=== PATIENT | female | born 1950 | race Caucasian/White ===

== ENCOUNTER → 2018-05-26 | Outpatient (CLI) | payer BC ==
[~2018-05-26] MED LIST: OMNIPAQUE 350 MG/ML, 100ML BOTTLE ONE
== END | disposition home or self-care (01) ==
LOC: CFH 10:09
PROVIDERS: ATTEND Internal Medicine Hematology & Oncology
DX: Z45.2 Encounter for adjustment and management of vascular access device (principal); C21.0 Malignant neoplasm of anus, unspecified; R59.0 Localized enlarged lymph nodes; K76.89 Other specified diseases of liver
CPT/HCPCS: 71260; 74177; Q9967

== ENCOUNTER → 2018-06-25 | Outpatient (CLI) | payer BC | END | disposition home or self-care (01) | LOC: PETCFH 13:49 | PROVIDERS: ATTEND Internal Medicine Hematology & Oncology | DX: C21.0 Malignant neoplasm of anus, unspecified (principal); Z45.2 Encounter for adjustment and management of vascular access device | CPT/HCPCS: 78815; A9552 ==

== ENCOUNTER 2020-12-05 12:36 | Outpatient (CLI) | payer BC ==
[2020-12-05] MEDS ORDERED: MIDAZOLAM 1 MG/ML, 5ML ONE ×2 (14:19)
[2020-12-05] MEDS ORDERED: FLUMAZENIL 0.1 MG/1 ML, 5ML ONE (14:19)
[2020-12-05] MEDS ORDERED: FENTANYL PF 100 MCG/2ML ONE (14:19)
[2020-12-05] MEDS ORDERED: NALOXONE 1 MG/ML, 2ML ONE (14:20)
== END 2020-12-05 23:59 | disposition home or self-care (01) ==
LOC: RAD 12:36
PROVIDERS: ATTEND Family Medicine
DX: M48.061 Spinal stenosis, lumbar region without neurogenic claudication (principal); G47.00 Insomnia, unspecified; J44.9 Chronic obstructive pulmonary disease, unspecified; E78.5 Hyperlipidemia, unspecified; E03.9 Hypothyroidism, unspecified; F41.9 Anxiety disorder, unspecified; Z85.038 Personal history of other malignant neoplasm of large intestine; Z79.899 Other long term (current) drug therapy; Z98.890 Other specified postprocedural states
CPT/HCPCS: 72148; 99156; 99157; J2250; J3010; J2310

== ENCOUNTER 2021-01-16 13:44 | Outpatient (CLI) | payer BC | END 2021-01-16 23:59 | disposition home or self-care (01) | LOC: CFH 13:44 | PROVIDERS: ATTEND Family Medicine | DX: N63.11 Unspecified lump in the right breast, upper outer quadrant (principal); N64.4 Mastodynia | CPT/HCPCS: 76642; 77062; 77066; G0279 ==

== ENCOUNTER → 2021-02-21 | Outpatient (CLI) | payer BC ==
[~2021-02-21] MED LIST changes: +GADOTERATE 7.5 MMOL/15 ML VIAL ONE; -OMNIPAQUE 350 MG/ML, 100ML BOTTLE ONE
== END | disposition home or self-care (01) ==
LOC: CFH 12:46
PROVIDERS: ATTEND Internal Medicine Hematology & Oncology
DX: Z45.2 Encounter for adjustment and management of vascular access device (principal); C50.811 Malignant neoplasm of overlapping sites of right female breast; C21.0 Malignant neoplasm of anus, unspecified; N63.12 Unspecified lump in the right breast, upper inner quadrant
CPT/HCPCS: 77049; A9575; C8937; C8908

== ENCOUNTER → 2021-02-22 | Outpatient (CLI) | payer BC ==
[~2021-02-22] MED LIST changes: +ACET-458 PO; +CALC-534 PO; +GABA600T7 PO; -GADOTERATE 7.5 MMOL/15 ML VIAL ONE; +LEVO75TA85 PO; +METH-640 PO; +MORP15TA PO; +OXYC10TA6 PO; +SERT50TA28 PO; +TIOT18CA INH; +VITA100022 PO; +ZOLP10TA PO; +ropinirole PO
== END | disposition home or self-care (01) ==
LOC: PETCFH 07:34
PROVIDERS: ATTEND Internal Medicine Hematology & Oncology
DX: C21.0 Malignant neoplasm of anus, unspecified (principal); C50.811 Malignant neoplasm of overlapping sites of right female breast; N63.10 Unspecified lump in the right breast, unspecified quadrant; Z45.2 Encounter for adjustment and management of vascular access device
CPT/HCPCS: 78815; A9552

== ENCOUNTER → 2021-02-24 | Outpatient (CLI) | payer BC | END | disposition home or self-care (01) | LOC: STAR 14:01 | PROVIDERS: ATTEND Surgery | DX: Z01.818 Encounter for other preprocedural examination (principal); C50.411 Malignant neoplasm of upper-outer quadrant of right female breast; R94.31 Abnormal electrocardiogram [ECG] [EKG]; Z20.822 Contact with and (suspected) exposure to COVID-19 | CPT/HCPCS: 93005; U0003; U0005 ==

== ENCOUNTER 2021-03-02 07:38 | Observation (INO) | payer BC ==
[~2021-03-02] VITALS: Ht 172.7 cm; Wt 77.1 kg
[~2021-03-02 07:38] MED LIST changes: +BUPIVACAINE/PF 0.5% ONE; +EPINEPHRINE 1 MG/ML, 1ML ONE; +HEPARIN 1,000 UNITS/ML, 10ML ONE; +HEPARIN 5,000 UNITS/ML, 1ML ONE
[2021-03-02] MEDS ORDERED: CHLORHEXIDINE 15 ML UDC PO ONE (08:00)
[2021-03-02] MEDS ORDERED: LACTATED RINGERS 1,000 ML IV SCH (08:00)
[2021-03-02 08:10] VITALS: BP 106/67
[2021-03-02] MEDS ORDERED: FENTANYL PF 100 MCG/2ML ONE (10:07)
[2021-03-02] MEDS ORDERED: BUPIVACAINE/PF-EPI 0.5% 1:200K INFIL ONE (10:21)
[2021-03-02] MEDS ORDERED: HEPARIN 1,000 UNITS/ML, 10ML IV ONE (10:21)
[2021-03-02] MEDS ORDERED: PROMETHAZINE 25 MG/ML, 1ML IVPush PRN (10:30)
[2021-03-02] MEDS ORDERED: MEPERIDINE/PF 25MG/0.5ML IVPush PRN (10:30)
[2021-03-02] MEDS ORDERED: HYDROcodone/APAP 7.5-325MG/15ML UDC PO PRN (10:30)
[2021-03-02] MEDS ORDERED: morphine SULFATE 10 MG/ML, 1ML IVPush PRN (10:30)
[2021-03-02] MEDS ORDERED: FENTANYL PF 100 MCG/2ML IV PRN (10:30)
[2021-03-02] MEDS ORDERED: OXYcodone 5 MG/5 ML ORAL.SOL UDC ONE (11:16)
[2021-03-02] MEDS: OXYcodone 5 MG/5 ML ORAL.SOL UDC PO PRN ×3 (11:18→16:45)
[2021-03-02] MEDS ORDERED: ONDANSETRON 2MG/ML, 2ML ONE (16:11)
[2021-03-02] MEDS ORDERED: DEXAMETHASONE 4 MG/ML, 1ML ONE (16:11)
[2021-03-02] MEDS ORDERED: CEFAZOLIN 1,000 MG ONE (16:11)
[2021-03-02] MEDS ORDERED: PROPOFOL 10 MG/ML, 20ML ONE (16:11)
[2021-03-02 19:40] VITALS: BP 149/75
[2021-03-02] MEDS ORDERED: ZOLPIDEM 10MG TABLET PO PRN (20:00)
[2021-03-02] MEDS: LACTATED RINGERS 1,000 ML IV SCH (20:00)
[2021-03-02] MEDS ORDERED: MORPHINE SULFATE 4 MG/ML, 1ML IVPush PRN (20:00)
[2021-03-02] MEDS ORDERED: HYDROmorphone 2 MG/ML, 1ML IV PRN (20:00)
[2021-03-02] MEDS: IPRATROPIUM 0.5 MG/2.5 ML INHA NPPB SCH (20:24)
[2021-03-02] MEDS: CALCIUM/VITAMIN D3 250-125 TABLET PO SCH (21:00)
[2021-03-02] MEDS: VITAMIN E 400 UNITS CAPSULE PO SCH (22:23)
[2021-03-02] MEDS: METHOCARBAMOL 750 MG TABLET PO SCH (22:24)
[2021-03-02] MEDS: GABAPENTIN 300 MG CAPSULE PO SCH (22:24)
[2021-03-02] MEDS: OXYcodone IR 5MG TABLET PO SCH (22:24)
[2021-03-02] MEDS ORDERED: SERTRALINE 50MG TABLET PO SCH (22:30)
[2021-03-02] MEDS ORDERED: ROPINIROLE 1MG TABLET PO SCH (23:30)
[2021-03-03] MEDS: IPRATROPIUM 0.5 MG/2.5 ML INHA NPPB SCH ×2 (02:00→08:00)
[2021-03-03 02:39] VITALS: BP 98/59
[2021-03-03] MEDS: LACTATED RINGERS 1,000 ML IV SCH (05:23)
[2021-03-03] MEDS ORDERED: LEVOTHYROXINE 75 MCG TABLET PO SCH (06:00)
[2021-03-03 06:47] VITALS: BP 117/71
[2021-03-03] MEDS: VITAMIN E 400 UNITS CAPSULE PO SCH (07:51)
[2021-03-03] MEDS: OXYcodone IR 5MG TABLET PO SCH (07:51)
[2021-03-03] MEDS: METHOCARBAMOL 750 MG TABLET PO SCH (07:51)
[2021-03-03] MEDS: GABAPENTIN 300 MG CAPSULE PO SCH (07:51)
[2021-03-03] MEDS: CALCIUM/VITAMIN D3 250-125 TABLET PO SCH (07:52)
[2021-03-03] MEDS ORDERED: SERTRALINE 50MG TABLET PO SCH (09:00)
[2021-03-03 09:10] VITALS: BP 107/60
== END 2021-03-03 10:04 | disposition home or self-care (01) ==
LOC: OUT 07:38 → ORIP 18:04 → 4NE 19:37 → DCLOUNGE 03-03 09:53
PROVIDERS: ADMIT Surgery; ATTEND Surgery
DX: C50.411 Malignant neoplasm of upper-outer quadrant of right female breast (principal); J44.9 Chronic obstructive pulmonary disease, unspecified; R09.02 Hypoxemia; M19.90 Unspecified osteoarthritis, unspecified site; F17.200 Nicotine dependence, unspecified, uncomplicated; Z85.048 Personal history of other malignant neoplasm of rectum, rectosigmoid junction, and anus; Z17.1 Estrogen receptor negative status [ER-]; Z79.899 Other long term (current) drug therapy
CPT/HCPCS: 36571; 77001; 94640; C1788; G0378; J0171; J0690; J1100; J1644; J2405; J2704; J3010; J7120; J7644; S0020

== ENCOUNTER → 2021-03-10 | Outpatient (CLI) | payer BC ==
[~2021-03-10] MED LIST changes: -BUPIVACAINE/PF 0.5% ONE; -EPINEPHRINE 1 MG/ML, 1ML ONE; -HEPARIN 1,000 UNITS/ML, 10ML ONE; -HEPARIN 5,000 UNITS/ML, 1ML ONE
== END | disposition home or self-care (01) ==
LOC: CFH 13:54
PROVIDERS: ATTEND Internal Medicine Hematology & Oncology
DX: C50.811 Malignant neoplasm of overlapping sites of right female breast (principal); C21.0 Malignant neoplasm of anus, unspecified; R59.0 Localized enlarged lymph nodes
CPT/HCPCS: 76642

== ENCOUNTER 2021-03-30 07:36 | Outpatient (CLI) | payer BC | END 2021-03-30 23:59 | disposition home or self-care (01) | LOC: CFH 07:36 | PROVIDERS: ATTEND Internal Medicine Hematology & Oncology | DX: R59.0 Localized enlarged lymph nodes (principal) | CPT/HCPCS: 76942; 76998 ==

== ENCOUNTER 2021-06-09 12:42 | Outpatient (CLI) | payer BC | END 2021-06-09 23:59 | disposition home or self-care (01) | LOC: RAD 12:42 | PROVIDERS: ATTEND Internal Medicine Hematology & Oncology | DX: C50.811 Malignant neoplasm of overlapping sites of right female breast (principal); C21.0 Malignant neoplasm of anus, unspecified; R22.43 Localized swelling, mass and lump, lower limb, bilateral | CPT/HCPCS: 93970 ==

== ENCOUNTER 2021-06-14 14:33 | Emergency (ER) | payer BC ==
[~2021-06-14] VITALS: Ht 172.7 cm; Wt 70.6 kg
[2021-06-14 14:44] VITALS: BP 105/59
--- NOTE | 2021-06-14 15:49 | NUR ---
COSTING ANALYST: PT LEFT, AMA PAPER SIGNED
== END 2021-06-14 15:50 ==
LOC: ED 15:40
DX: M54.40 Lumbago with sciatica, unspecified side (principal)
CPT/HCPCS: 99281

== ENCOUNTER 2021-06-22 12:07 | Outpatient (CLI) | payer BC ==
[2021-06-22] MEDS ORDERED: GADOTERATE 10 MMOL/20 ML VIAL ONE (12:45)
== END 2021-06-22 23:59 | disposition home or self-care (01) ==
LOC: CFH 12:07
PROVIDERS: ATTEND Internal Medicine Hematology & Oncology
DX: C50.811 Malignant neoplasm of overlapping sites of right female breast (principal); C21.0 Malignant neoplasm of anus, unspecified; N63.11 Unspecified lump in the right breast, upper outer quadrant
CPT/HCPCS: 77049; A9575; C8908

== ENCOUNTER 2021-06-29 08:04 | Day surgery (SDC) | payer BC, MEDICARE ==
[~2021-06-29] VITALS: Ht 172.7 cm; Wt 71.6 kg
[2021-06-29] MEDS ORDERED: MORP30TA PO (08:32)
[2021-06-29] MEDS ORDERED: ROPI3TAB4 PO (08:49)
[2021-06-29] MEDS ORDERED: LACTATED RINGERS 1,000 ML IV SCH (09:00)
[2021-06-29] MEDS ORDERED: CHLORHEXIDINE 15 ML UDC PO ONE (09:00)
[2021-06-29 09:04] VITALS: BP 110/70
[2021-06-29] MEDS: FENTANYL PF 100 MCG/2ML IV PRN ×2 (14:46→15:02)
[2021-06-29] MEDS: MORPHINE SULFATE 4 MG/ML, 1ML IVPush PRN ×5 (14:55→18:28)
[2021-06-29] MEDS ORDERED: HYDROmorphone 1 MG/ML, 1ML INJ IVPush PRN (15:00)
[2021-06-29] MEDS ORDERED: MEPERIDINE/PF 25MG/0.5ML IVPush PRN (15:00)
[2021-06-29] MEDS ORDERED: HYDROcodone/APAP 7.5-325MG/15ML UDC PO PRN (15:00)
[2021-06-29] MEDS ORDERED: PROMETHAZINE 25 MG/ML, 1ML IVPush PRN (15:00)
[2021-06-29] MEDS ORDERED: ACETAMINOPHEN 325 MG TABLET PO PRN (15:00)
[2021-06-29] MEDS ORDERED: OXYcodone 5 MG/5 ML ORAL.SOL UDC PO PRN (15:00)
[2021-06-29] MEDS ORDERED: ONDANSETRON 2MG/ML, 2ML IVPush PRN (15:00)
[2021-06-29] MEDS ORDERED: OXYcodone 5 MG/5 ML ORAL.SOL UDC ONE (15:39)
[2021-06-29] MEDS ORDERED: ENOXAPARIN 40 MG/0.4 ML SQ SCH (18:00)
[2021-06-29] MEDS ORDERED: OXYcodone/APAP 5/325MG TABLET PO PRN (18:00)
[2021-06-29] MEDS ORDERED: ONDANSETRON 2MG/ML, 2ML IV PRN (18:00)
[2021-06-29] MEDS ORDERED: morphine SULFATE 10 MG/ML, 1ML IV PRN (18:00)
[2021-06-29] MEDS ORDERED: HYDROcodone/APAP 5/325 TABLET PO PRN (18:00)
[2021-06-29] MEDS ORDERED: CEFOTETAN PMX 1GM/50ML 50 ML IVPB SCH (18:00)
[2021-06-29] MEDS ORDERED: HYDROmorphone 2 MG/ML, 1ML IVPush PRN (18:00)
[2021-06-29 18:55] VITALS: BP 106/95
[2021-06-29] MEDS ORDERED: ACETAMINOPHEN 500 MG TABLET PO SCH (21:00)
[2021-06-29] MEDS ORDERED: ZOLPIDEM 10MG TABLET PO SCH (21:00)
[2021-06-29] MEDS ORDERED: OXYcodone IR 5MG TABLET PO SCH (21:00)
[2021-06-29] MEDS ORDERED: DIPHENHYDRAMINE 50 MG CAPSULE PO SCH (21:00)
[2021-06-29] MEDS: VITAMIN E 400 UNITS CAPSULE PO SCH (22:41)
[2021-06-29] MEDS: CALCIUM/VITAMIN D3 250-125 TABLET PO SCH (22:41)
[2021-06-29] MEDS: GABAPENTIN 300 MG CAPSULE PO SCH (22:41)
[2021-06-29] MEDS: METHOCARBAMOL 750 MG TABLET PO SCH (22:41)
[2021-06-30 00:27] VITALS: BP 104/64
[2021-06-30] MEDS ORDERED: CEFOTETAN PMX 1GM/50ML 50 ML IVPB SCH (01:30)
[2021-06-30] MEDS: POTASSIUM CHLORIDE 20 MEQ in D5%-LACTATED RINGERS 1,000 ML IV SCH ×2 (03:42→04:05)
[2021-06-30] MEDS ORDERED: LEVOTHYROXINE 75 MCG TABLET PO SCH (06:00)
[2021-06-30 07:21] VITALS: BP 117/65
[2021-06-30] MEDS ORDERED: OXYcodone IR 5MG TABLET PO SCH (09:00)
[2021-06-30] MEDS ORDERED: ROPINIROLE 1MG TABLET PO SCH (09:00)
[2021-06-30] MEDS: VITAMIN E 400 UNITS CAPSULE PO SCH (09:00)
[2021-06-30] MEDS ORDERED: TIOTROPIUM BROMIDE 18 MCG/INH INH SCH (09:00)
[2021-06-30] MEDS: METHOCARBAMOL 750 MG TABLET PO SCH (09:00)
[2021-06-30] MEDS: GABAPENTIN 300 MG CAPSULE PO SCH (09:00)
[2021-06-30] MEDS: CALCIUM/VITAMIN D3 250-125 TABLET PO SCH (09:00)
== END 2021-06-30 05:25 | disposition home or self-care (01) ==
LOC: OUT 08:04 → 4NE 16:52 → UNDOADMIN 16:58 → ORIP 16:58 → 4NE 17:48 → OUT 17:48 → 4NE 18:01 → ORIP 18:01 → OUT 06-30 05:25 → UNDODISIN 06-30 09:52
PROVIDERS: ATTEND Surgery
DX: C50.411 Malignant neoplasm of upper-outer quadrant of right female breast (principal); Z20.822 Contact with and (suspected) exposure to COVID-19; Z79.899 Other long term (current) drug therapy; Z87.891 Personal history of nicotine dependence; Z88.5 Allergy status to narcotic agent
CPT/HCPCS: 19303; 36590; 38525; 87635; 88307; 88333; C1729; J1650; J2270; J3010; J3480; J7121; G0378